=== PATIENT | female | born 1980 | race American Indian/Alaskan Native ===

== ENCOUNTER 2020-03-21 05:48 | Day surgery (SDC) | payer MEDICAID ==
[2020-03-21] MEDS ORDERED: LACTATED RINGERS 1,000 ML ONE (07:18)
[2020-03-21] MEDS ORDERED: LACTATED RINGERS 1,000 ML IV SCH (07:20)
--- NOTE | 2020-03-21 07:22 | Anesthesia Consultation ---
Anesthesia Consult and Med Hx Date of service: 03/21/20 - Airway Anesthetic Teeth Evaluation: Good ROM Head & Neck: Adequate Mental/Hyoid Distance: Adequate Mallampati Class: Class II Intubation Access Assessment: Good - Pulmonary Exam CTA: Yes - Cardiac Exam Cardiac Exam: RRR - Pre-Operative Health Status ASA Pre-Surgery Classification: ASA2 Proposed Anesthetic Plan: General - Pulmonary Hx Smoking: No Hx Asthma: No COPD: No Hx Pneumonia: No Hx Sleep Apnea: No (ROMY PRE SCREEN NEGATIVE) - Cardiovascular System Hx Hypertension: No Hx Heart Attack/AMI: No Hx Pacemaker: No Hx Internal Defibrillator: No Hx Heart Murmur: No - Central Nervous System Hx Seizures: No Hx Back Pain: No Hx Psychiatric Problems: No - Endocrine Hx End Stage Renal Disease: No Hx Cirrhosis: No Hx Liver Disease: No - Hematic Hx Anemia: Yes Hx Sickle Cell Disease: No - Other Systems Hx Alcohol Use: No Hx Substance Use: No Hx Cancer: No
--- NOTE | 2020-03-21 07:22 | Anesthesia Day of Surgery ---
Anesthesia Day of Surgery - Day of Surgery Patient Examined: Yes Patient H&P Reviewed: Yes Patient is NPO: Yes
[2020-03-21] MEDS ORDERED: propofoL 200 MG/20 ML VIAL IV ONE (07:30)
[2020-03-21] MEDS ORDERED: dexAMETHasone 20 MG/5 ML VIAL ONE (07:30)
[2020-03-21] MEDS ORDERED: ONDANSETRON 4 MG/2 ML INJ ONE (07:30)
[2020-03-21] MEDS ORDERED: KETOROLAC 30 MG/1 ML INJ ONE (07:30)
[2020-03-21] MEDS ORDERED: LIDOCAINE MPF (2%) 20 MG/1 ML VIAL 5 ML ONE (07:31)
[2020-03-21] MEDS ORDERED: fentaNYL 100 MCG/2 ML INJ ONE (07:56)
[2020-03-21] MEDS ORDERED: WATER FOR IRRIG STERILE 2000 ML IR ONE (08:16)
[2020-03-21] MEDS ORDERED: WATER FOR IRRIG STERILE 1,500 ML BOTTLE IR ONE (08:17)
--- NOTE | 2020-03-21 08:37 | Short Stay Summary ---
Short Stay Documentation Date of service: 03/21/20 - History H&P: obtained from office - Allergies and Medications Current Medications: Allergies aspirin Allergy (Verified 10/25/13 19:11) Hives cinnamon [Cinnamon] Allergy (Verified 10/25/13 19:11) Hives ibuprofen Adverse Reaction (Verified 03/13/20 13:53) Hives strawberry Adverse Reaction (Verified 03/13/20 13:53) Hives Sulfa (Sulfonamide Antibiotics) Adverse Reaction (Verified 03/13/20 13:53) Hives CHOCOLATE Adverse Reaction (Uncoded 03/13/20 13:53) Hives NUTS-PEANUTS ETC. Adverse Reaction (Uncoded 03/13/20 13:53) Hives Home Medications Medication Instructions Recorded Confirmed Last Taken Type traMADoL [Ultram] 50 mg PO Q6HR PRN #12 tablet 12/25/19 03/21/20 03/20/20 17:00 Rx HYDROcodone bitartrate 5 mg PO Q6HR PRN 03/13/20 03/13/20 Unknown History Active Medications Levofloxacin/Dextrose (Levaquin 500mg/100ml) 500 mg in 100 mls @ 100 mls/hr IV PREOP NR; Protocol Stop: 03/21/20 23:59 Lactated Ringer's (Lactated Ringers) 1,000 mls @ 75 mls/hr IV DIRECT ULISES Last Admin: 03/21/20 07:25 Dose: 75 mls/hr Documented by: - Brief post op/procedure progress note Date of procedure: 03/21/20 Pre-op diagnosis: left flank pain Post-op diagnosis: other (left distal stone) Procedure: cysto, rpg, left ureteroscopy , stone extraction, left stent with external string Anesthesia: GETA Surgeon: NOBLE MORENO Estimated blood loss: none Condition: stable - Hospital course Hospital course: shannen brewster, post op info on chart - Disposition Condition at discharge: Stable Disposition: DC-01 TO HOME OR SELFCARE Short Stay Discharge Plan Follow up with: DARIA VAZQUEZ MD [Primary Care Provider] - 7 Days
[2020-03-21] MEDS ORDERED: HYDROmorphone 1 MG/1 ML INJ IV PRN (08:49)
[2020-03-21] MEDS ORDERED: ONDANSETRON 4 MG/2 ML INJ IV PRN (08:49)
[2020-03-21] MEDS ORDERED: HYDROmorphone 1 MG/1 ML INJ ONE (08:50)
--- NOTE | 2020-03-21 08:54 | Operative Report ---
PREOPERATIVE DIAGNOSIS: Left flank pain. POSTOPERATIVE DIAGNOSES: Left flank pain, left distal ureteral stone. PROCEDURES: Cystoscopy, bilateral retrograde pyelograms, left ureteroscopy, basket stone extraction, double-J stent (6-Micronesian 24 cm) with an external string. SURGEON: Eh Anna MD ANESTHESIA: General. ESTIMATED BLOOD LOSS: Minimal. FLUIDS: Crystalloid. COMPLICATIONS: No complications. INDICATIONS: This 40-year-old female with a history of stones, presents to the office with left flank pain. CT of abdomen and pelvis was actually normal. She continued to have persistent left flank pain, presents now for surgical intervention. DESCRIPTION OF PROCEDURE: The patient was taken to the operative suite, placed in a supine position. After adequate general anesthesia, placed in a dorsal lithotomy position, prepped and draped in a sterile fashion. Pancystourethroscopy was performed with a 22-Micronesian Storz cystoscope. No bladder pathology. Bilateral retrograde pyelograms were obtained with an 8-Micronesian Satnam catheter and 8 mL of contrast. No filling defects or obstruction on the right. Left side displayed a distal filling defect suggestive of a stone. Two 0.035 Glidewires were placed. Rigid ureteroscopy in the left ureter, yellow stone could be appreciated, it was engaged with a 3-Micronesian Denise basket and extracted without difficulty. Ureteroscopy up to the renal pelvis, no other stones could be appreciated. A 6-Micronesian 24 cm double-J stent was placed under fluoroscopic guidance with an external string. Bladder was drained. Bladder showed no other abnormalities. She was extubated and taken to recovery room. She will go home on [employer] and follow up in the office. JOB# [id number] [facility]/NT[facility]
[2020-03-21 09:59] VITALS: BP 113/75
[2020-03-21] MEDS ORDERED: HYDROcodone/ACETAMINOPHEN 5-325 MG TAB PO PRN (10:00)
--- NOTE | 2020-03-21 10:29 | Post Anesthesia Evaluation ---
- Post Anesthesia Evaluation Patient Participated: Yes Airway Patent: Yes Stable Respiratory Function: Yes Nausea/Vomiting: No Temp > 96.8F: Yes Pain Manageable: Yes Adequeate Hydration: Yes Anesthesia Complications: No Block Receding Appropriately: Not Applicable Patient on Ventilator: No
--- NOTE | 2020-03-21 15:43 | Fluoroscopy Report ---
INTRAOPERATIVE FLUOROSCOPY: RETROGRADE UROGRAPHY INDICATION / CLINICAL INFORMATION: LT FLANK PAIN. TECHNIQUE: Intraoperative spot images were obtained during the procedure. FINDINGS: Images show injection of both collecting systems. No filling defects are seen on the right. There is partial opacification of the left ureter on the images obtained with small filling defect noted in th e distal ureter. Subsequent images show placement of ureteroscope and placement of a double-J stent o n the left. Fluoroscopy Time: 28 seconds. Fluoroscopy Images: 8. Signer Name: Georges Skelton MD Signed: 03/21/2020 3:38 PM Workstation Name: [id number]
== END 2020-03-21 10:10 | disposition home or self-care (01) ==
LOC: OR 05:48
PROVIDERS: ATTEND Urology
DX: R10.9 Unspecified abdominal pain (principal); N20.1 Calculus of ureter; G43.909 Migraine, unspecified, not intractable, without status migrainosus; K21.9 Gastro-esophageal reflux disease without esophagitis; R31.29 Other microscopic hematuria; D64.9 Anemia, unspecified; Z88.2 Allergy status to sulfonamides; Z88.8 Allergy status to other drugs, medicaments and biological substances; Z79.899 Other long term (current) drug therapy; Z90.710 Acquired absence of both cervix and uterus; Z87.440 Personal history of urinary (tract) infections; Z98.890 Other specified postprocedural states; Z88.6 Allergy status to analgesic agent
CPT/HCPCS: 52332; 52352; 74420; A4217; C1758; C1769; C2617; J1100; J1170; J1885; J1956; J2405; J2704; J3010; J7120; Q9967

== ENCOUNTER 2021-09-09 19:24 | Emergency (ER) | payer MEDICAID ==
[2021-09-09 21:05] LABS: Basophils % (Auto) 0.8 % (0.0-1.8); Eosinophils % (Auto) 0.7 % (0.0-4.3); Hematocrit 39.1 % (30.3-42.9); Hemoglobin 13.1 gm/dl (10.1-14.3); Lymphocytes # (Auto) 2.2 K/mm3 (1.2-5.4); Lymphocytes % (Auto) 45.7 % (13.4-35.0); Mean Corpuscular HGB Conc 33 % (30-34); Mean Corpuscular Volume 94 fl (79-97); Monocytes # (Auto) 0.5 K/mm3 (0.0-0.8); Monocytes % (Auto) 10.3 % (0.0-7.3); Platelet Count 329 K/mm3 (140-440); Red Blood Count 4.16 M/mm3 (3.65-5.03); Red Cell Distribution Width 13.2 % (13.2-15.2)
[2021-09-09 21:21] LABS: Alanine Aminotransferase 18 units/L (7-56); Albumin 4.6 g/dL (3.9-5); Blood Urea Nitrogen 10 mg/dL (7-17); Calcium 9.6 mg/dL (8.4-10.2); Hemolysis Index 13
[2021-09-09 21:22] LABS: BUN/Creatinine Ratio 17
[2021-09-09 22:02] LABS: Bilirubin,Urine NEG (Negative); Blood,Urine NEG (Negative); Color,Urine Yellow (Yellow); Mucus,Urine 3+ /HPF; Protein,Urine <15 mg/dL mg/dL (Negative); Urobilinogen,Urine < 2.0 mg/dL (<2.0)
[2021-09-10] MEDS ORDERED: ONDANSETRON 4 MG ODT TAB PO ONE (01:38)
[2021-09-10] MEDS ORDERED: oxyCODONE /ACETAMINOPHEN 5-325MG TAB PO ONE (01:38)
[2021-09-10] MEDS ORDERED: MORPHINE 4 MG/1 ML INJ IV ONE (01:39)
[2021-09-10] MEDS ORDERED: ONDANSETRON 4 MG/2 ML INJ IV ONE (01:39)
--- NOTE | 2021-09-10 02:25 | Cat Scan Report ---
CT ABDOMEN AND PELVIS WITHOUT CONTRAST INDICATION: RIGHT-SIDED FLANK PAIN - HISTORY OF KIDNEY STONES CONTRAST: Without IV COMPARISON: 12/25/[address] scans at this location are performed using CT dose reduction for ALARA by means of automated e xposure control. FINDINGS: Lung bases clear. No pneumoperitoneum. No lymphadenopathy. Liver is mildly enlarged and has a length of 18.5 cm. No focal lesions are seen. Spleen is not enlarged. Gallbladder and bile ducts w ithin normal limits. No abdominal masses are seen. No urinary tract calculi or evidence of obstructio n. Slight nephrocalcinosis is seen bilaterally. No bowel obstruction. No inflammatory changes. No pel nafisa masses. Appendix appears within normal limits. IMPRESSION: No acute abnormalities are seen Signer Name: Tony Linares MD Signed: 09/10/2021 2:21 AM Workstation Name: [email or web address]
--- NOTE | 2021-09-10 03:36 | Emergency Department Report ---
ED Abdominal Pain HPI - General Chief Complaint: Abdominal Pain Stated Complaint: SHARP STOMACH/KIDNEY PAIN Source: patient Mode of arrival: Ambulatory Limitations: No Limitations - History of Present Illness Initial Comments: Patient is a 41-year-old -[place] female with a history of kidney stones, migraine headaches and GERD who presents to the ED with complaint of ac [place] onset persistent right flank pain that radiates to the right lower quadrant area and lower back with nausea and vomiting for the last 3 days. Patient states that she believes that the symptoms are likely due to a flareup of her chronic recurrent kidney stones. Patient denies dizziness, syncope, chest pain or shortness of breath, fever, chills, dysuria, urinary frequency and urgency, vaginal discharge, vaginal bleeding, heavy lifting or fall, traumatic injury or numbness and tingling or weakness of lower extremities bilaterally. MD Complaint: abdominal pain, flank pain (right), other (nausea and vomiting) -: Sudden, days(s) (3) Location: RLQ, R flank Radiation: RLQ, R flank Migration to: no migration Severity scale (0 -10): 8 Quality: cramping, sharp Consistency: constant Improves With: nothing Worsens With: nothing Associated Symptoms: denies other symptoms, nausea, vomiting. denies: diarrhea, fever, chills, constipation, dysuria, hematemesis, hematochezia, melena, hematuria, anorexia, syncope - Related Data Home Medications Medication Instructions Recorded Confirmed Last Taken HYDROcodone bitartrate 5 mg PO Q6HR PRN 03/13/20 03/13/20 Unknown Previous Rx's Medication Instructions Recorded Last Taken Type Acetaminophen [Tylenol] 500 mg PO Q6HR PRN #40 tablet 09/10/21 Unknown Rx Baclofen 20 mg PO Q12H PRN #24 tab 09/10/21 Unknown Rx Ondansetron [Zofran Odt] 4 mg PO Q8HR PRN #20 tab.rapdis 09/10/21 Unknown Rx traMADoL [Ultram 50 MG tab] 50 mg PO Q6HR PRN #12 tablet 09/10/21 Unknown Rx Allergies Allergy/AdvReac Type Severity Reaction Status Date / Time aspirin Allergy Hives Verified 10/25/13 19:11 cinnamon [Cinnamon] Allergy Hives Verified 10/25/13 19:11 ibuprofen AdvReac Hives Verified 03/13/20 13:53 strawberry AdvReac Hives Verified 03/13/20 13:53 Sulfa (Sulfonamide AdvReac Hives Verified 03/13/20 13:53 Antibiotics) CHOCOLATE AdvReac Hives Uncoded 03/13/20 13:53 NUTS-PEANUTS ETC. AdvReac Hives Uncoded 03/13/20 13:53 ED Review of Systems ROS: Stated complaint: SHARP STOMACH/KIDNEY PAIN Other details as noted in HPI Constitutional: denies: chills, fever Eyes: denies: eye pain, eye discharge, vision change ENT: denies: ear pain, throat pain Respiratory: denies: cough, shortness of breath, wheezing Cardiovascular: denies: chest pain, palpitations Endocrine: no symptoms reported Gastrointestinal: abdominal pain (RLQ and right flank pain), nausea, vomiting. denies: diarrhea Genitourinary: denies: urgency, dysuria, discharge Musculoskeletal: back pain (lower). denies: joint swelling, arthralgia Skin: denies: rash, lesions Neurological: denies: headache, weakness, paresthesias Psychiatric: denies: anxiety, depression Hematological/Lymphatic: denies: easy bleeding, easy bruising ED Past Medical Hx - Past Medical History Hx Hypertension: No Hx Heart Attack/AMI: No Hx Congestive Heart Failure: No Hx Diabetes: No Hx GERD: Yes Hx Liver Disease: No Hx Sickle Cell Disease: No Hx Arthritis: No Hx Headaches / Migraines: Yes (MIGRAINES) Hx Seizures: No Hx Kidney Stones: Yes Hx Asthma: No Hx COPD: No Hx Tuberculosis: No Hx HIV: No - Surgical History Hx Pacemaker: No Hx Internal Defibrillator: No Additional Surgical History: tubal ligation, hernia surgery, hysterectomy - Social History Smoking Status: Never Smoker - Medications Home Medications: Home Medications Medication Instructions Recorded Confirmed Last Taken Type HYDROcodone bitartrate 5 mg PO Q6HR PRN 03/13/20 03/13/20 Unknown History Acetaminophen [Tylenol] 500 mg PO Q6HR PRN #40 tablet 09/10/21 Unknown Rx Baclofen 20 mg PO Q12H PRN #24 tab 09/10/21 Unknown Rx Ondansetron [Zofran Odt] 4 mg PO Q8HR PRN #20 tab.rapdis 09/10/21 Unknown Rx traMADoL [Ultram 50 MG tab] 50 mg PO Q6HR PRN #12 tablet 09/10/21 Unknown Rx ED Physical Exam - General Limitations: No Limitations General appearance: alert, in no apparent distress - Head Head exam: Present: atraumatic, normocephalic, normal inspection - Eye Eye exam: Present: normal appearance, PERRL, EOMI Pupils: Present: normal accommodation - ENT ENT exam: Present: normal exam, normal orophraynx, mucous membranes moist, TM's normal bilaterally, normal external ear exam - Neck Neck exam: Present: normal inspection, full ROM. Absent: tenderness - Respiratory Respiratory exam: Present: normal lung sounds bilaterally. Absent: respiratory distress, wheezes, rales, rhonchi, chest wall tenderness, accessory muscle use, decreased breath sounds - Cardiovascular Cardiovascular Exam: Present: regular rate, normal rhythm, normal heart sounds. Absent: systolic murmur, diastolic murmur, rubs, gallop - GI/Abdominal GI/Abdominal exam: Present: soft, tenderness (Palpable right flank and RLQ tenderness), normal bowel sounds. Absent: guarding, rebound, hyperactive bowel sounds, hypoactive bowel sounds, organomegaly - Extremities Exam Extremities exam: Present: normal inspection, full ROM, normal capillary refill - Back Exam Back exam: Present: normal inspection, full ROM, tenderness (Palpable lumbosacral paraspinal musculoskeletal tenderness), muscle spasm, paraspinal tenderness. Absent: CVA tenderness (R), CVA tenderness (L), vertebral tenderness - Neurological Exam Neurological exam: Present: alert, oriented X3, CN II-XII intact, normal gait, reflexes normal - Psychiatric Psychiatric exam: Present: normal affect, normal mood - Skin Skin exam: Present: warm, dry, intact, normal color. Absent: rash ED Medical Decision Making - Lab Data Result diagrams: 09/09/21 20:33 09/09/21 20:33 - Radiology Data Radiology results: report reviewed, image reviewed [facility] [address] [place] [address] Cat Scan Report Signed Patient: YASMIN MCNEILL MR #: [id number] : 1980 A cct:[id number] Age/Sex: 41 / F ADM Date: 09/09/21 Loc: ED Attending Dr: Ordering Physician: KENN CASTRO Date of Service: 09/10/21 Procedure(s): CT abdomen pelvis wo con Accession Number(s): [id number] cc: KENN CASTRO CT ABDOMEN AND PELVIS WITHOUT CONTRAST INDICATION: RIGHT-SIDED FLANK PAIN - HISTORY OF KIDNEY STONES CONTRAST: Without IV COMPARISON: 12/25/[address] scans at this location are performed using CT dose reduction for ALARA by means of automated exposure control. FINDINGS: Lung bases clear. No pneumoperitoneum. No lymphadenopathy. Liver is mildly enlarged and has a length of 18.5 cm. No focal lesions are seen. Spleen is not enlarged. Gallbladder and bile ducts within normal limits. No abdominal masses are seen. No urinary tract calculi or evidence of obstruction. Slight nephrocalcinosis is seen bilaterally. No bowel obstruction. No inflammatory changes. No pelvic masses. Appendix appears within normal limits. IMPRESSION: No acute abnormalities are seen Signer Name: Tony Linares MD Signed: 09/10/2021 2:21 AM Workstation Name: [id number] Transcribed By: GJ Dictated By: Tony Linares MD Electronically Authenticated By: Tony Linares MD Signed Date/Time: 09/10/21220 DD/ 6 TD/TT: - Medical Decision Making This is a 41-year-old -[place] female with a history of kidney stones, migraine headaches and GERD who presents to the ED with complaint of acute onset persistent right flank pain that radiates to the right lower quadrant area and lower back with nausea and vomiting for the last 3 days. Patient states that she believes that the symptoms are likely due to a flareup of her chronic recurrent kidney stones. In the ED, patient is alert and oriented x3 and is not in any distress. Patient is hemodynamically stable. Patient was treated for pain in the ED and also given antiemetics. Patient received normal saline 1 L IV bolus x1. Abdomen pelvis CT scan without contrast showed no acute abnormalities or presence of kidney stones. All lab test results were reviewed and are all nonactionable. On reevaluation, patient's pain is well controlled medication. Patient will discharge home on medications and advised to follow-up with her primary care physician in 5 to 7 days for reevaluation or return to the ED immediately if symptoms get worse. - Differential Diagnosis kidney stones; UTI; appendicitis; muscle spasm Critical care attestation.: If time is entered above; I have spent that time in minutes in the direct care of this critically ill patient, excluding procedure time. ED Disposition Clinical Impression: Acute abdominal pain in right flank, Nausea and vomiting in adult patient, Spasm of muscle of lower back Disposition: 01 HOME / SELF CARE / HOMELESS Is pt being admited?: No Does the pt Need Aspirin: No Condition: Stable Instructions: Abdominal Pain (ED), Flank Pain, Adult, [id number], Nausea and Vomiting, Adult, [id number], Muscle Cramps and Spasms, [id number] Additional Instructions: All lab test results were reviewed and are all nonactionable. The abdomen pelvis CT scan without contrast showed no acute abnormalities, specifically no kidney stones were identified. Therefore your pain is likely due to muscle spasm of your low back. Therefore take medications with food, drink plenty of fluids and follow-up with your primary care physician in 5 to 7 days for reevaluation or return to the ED immediately if symptoms get worse. Prescriptions: Acetaminophen [Tylenol] 500 mg PO Q6HR PRN #40 tablet PRN Reason: Pain , Severe (7-10) Baclofen 20 mg PO Q12H PRN #24 tab PRN Reason: Muscle Spasm traMADoL [Ultram 50 MG tab] 50 mg PO Q6HR PRN #12 tablet PRN Reason: Pain Ondansetron [Zofran Odt] 4 mg PO Q8HR PRN #20 tab.rapdis PRN Reason: Nausea Referrals: [facility] [Provider Group] - 3-5 Days Forms: Work/School Release Form(ED) Time of Disposition: 03:34 Print Language: JAPANESE
[2021-09-10 04:13] VITALS: BP 115/74
== END 2021-09-10 04:50 | disposition home or self-care (01) ==
LOC: ED 19:24
DX: R10.31 Right lower quadrant pain (principal); R11.2 Nausea with vomiting, unspecified; M62.830 Muscle spasm of back; K21.9 Gastro-esophageal reflux disease without esophagitis; G43.909 Migraine, unspecified, not intractable, without status migrainosus; N20.0 Calculus of kidney; Z79.899 Other long term (current) drug therapy; Z88.6 Allergy status to analgesic agent; Z88.1 Allergy status to other antibiotic agents; Z91.02 Food additives allergy status; Z91.011 Allergy to milk products; Z91.018 Allergy to other foods; Z91.010 Allergy to peanuts; Z91.09 Other allergy status, other than to drugs and biological substances
CPT/HCPCS: 36415; 74176; 80053; 81001; 83690; 84703; 85025; 96374; 96375; 99284; J2270; J2405